=== PATIENT | female | born 1955 | race Caucasian/White ===

== ENCOUNTER 2017-01-13 14:37 | Observation (INO) | payer BC ==
--- NOTE | ~2017-01-13 | HP ---
History And Physical [address] [place]. [address] NAME: NIKKO RUGGIERO : 55 STATUS : ADM Francisca PAT#: [id number] AGE: 61 ADM/REG DATE : 01/13/17 MR#: [id number] REPORT SERV DATE: 01/14/17 DICTATED BY: YORDAN FISHER DATE: 01/14/17 REPORT STATUS : Draft TRANSCRIBED BY: MODL DATE: 01/14/17 DATE OF ADMISSION: 01/13/2017 REASON FOR ADMISSION: Acute pyelonephritis. HISTORY OF PRESENT ILLNESS: Ms. Ruggireo is a 61-year-old female with history of prior left- sided kidney surgery on three occasions, had prior history of kidney stones as well and was sent from primary care provider's office with nausea, vomiting, and failure of treatment of her UTI. The patient states back and leg pain starting at 6:04 p.m., fever to 102 degrees, pain radiated throughout her entire body. The fever broke; however, the pain persisted. She went to [facility] after she began having nausea and vomiting. She was diagnosed with UTI. She was prescribed Omnicef, but has not been able to hold down the medicines primary care provider's office on 01/13, where she was recommended to come to the hospital. She was holding down very little, no food or fluids at all. Her pain is primarily on the left side at this time in the left flank radiating to the groin, also in the right side as well. There was no loose stool. No headache, no neck pain, no chest pain. She has had a 70-pound intentional weight loss, but no bleeding, no dysuria. She has chronic numbness in her left leg that has eluded her prior work up. REVIEW OF SYSTEMS: Negative. PAST MEDICAL HISTORY: As mentioned above. History of meningitis, aseptic on 2 occasions. MEDICATIONS: Omnicef, Synthroid, Percocet, Protonix, Requip, Topamax. ALLERGIES: NO ALLERGIES. FAMILY HISTORY: Negative for kidney stones. SOCIAL HISTORY: The patient has no tobacco, alcohol, or drugs. PHYSICAL EXAMINATION: VITAL SIGNS: Blood pressure 155/81, pulse 73, respirations 18, , 98%. GENERAL: Awake, alert, and oriented x3, in no apparent distress. HEENT: Pupils are equal and reactive to light. Extraocular movements are intact. No cranial deficits. Dry mucous membranes. Normal oropharynx. NECK: Revealed no jugular venous distention, carotid bruits, lymphadenopathy, or goiter. Cardiac: Regular rate and rhythm. No murmurs, gallops, or rubs. LUNGS: Clear to auscultation bilaterally. Good excursion. ABDOMEN: Nondistended, mild diffuse tenderness. Bowel sounds normoactive. BACK: Significant for severe bilateral costovertebral angle tenderness and left side greater than right with significant left groin tenderness. EXTREMITIES: No cyanosis, clubbing, or edema. Good pulses but diminished capillary refill. NEUROLOGIC: Nonfocal x4. EXTREMITIES: Skin is warm, dry. History And Physical [address] [address] NAME: NIKKO RUGGIERO : 55 STATUS : ADM Francisca PAT#: [id number] AGE: 61 ADM/REG DATE : 01/13/17 MR#: [id number] REPORT SERV DATE: 01/14/17 DICTATED BY: YORDAN FISHER DATE: 01/14/17 REPORT STATUS : Draft TRANSCRIBED BY: JOURDAN DATE: 01/14/17 PSYCHIATRIC: She is appropriate. LABORATORY EVALUATION: Sodium 140, potassium 4.0, chloride 109, bicarb 25, BUN 13, creatinine 1.2, glucose 92, white count 4000, H and H of 11 and 34, platelets 236. Records from [facility] are pending. ASSESSMENT AND PLAN: Likely acute pyelonephritis. Differential diagnosis including kidney stones with radiating pain. A kidney stone protocol CT will be done. Give her IV fluids, antibiotics, pain control, and nausea control. Urology consultation if indicated. We anticipate a short stay as she has no indication of sepsis. If she could hold down p.o. medications, that would be perfectly acceptable. JORGE/JOURDAN Yordan Fisher M.D. / [id number] CC: Cal Leyva M.D.
--- NOTE | ~2017-01-13 | DS ---
Discharge Summary [address] [place]. [address] NAME: NIKKO REYNOLDS : 55 STATUS : DIS Francisca PAT#: [id number] AGE: 61 ADM/REG DATE : 01/13/17 MR#: [id number] REPORT SERV DATE: 01/15/17 DICTATED BY: YORDAN FISHER DATE: 01/14/17 REPORT STATUS : Draft TRANSCRIBED BY: MODL DATE: 01/14/17 ADMISSION DATE: 01/13/2017 DISCHARGE DATE: 01/14/2017 PRINCIPAL DIAGNOSES: Acute pyelonephritis with intractable nausea, vomiting, and dehydration. HISTORY OF PRESENT ILLNESS: Please see my dictation on 01/13/2017. HOSPITAL COURSE: Admitted with nausea and vomiting in the setting of UTI, unable to take her antibiotics, found to have significant mid back and flank pain radiating to her left groin consistent with pyelo. She ruled out for kidney stone with a negative CT. She was given IV fluids, antibiotics with some improvement in the symptoms; however, nausea continued until she began Marinol, able to tolerate p.o. and able to release in the afternoon of 01/14/2017 in stable condition. Diet as tolerated. Continuing her Omnicef, Phenergan p.r.n., and Marinol was prescribed 5 mg p.o. b.i.d. Follow up with Dr. Carmella Holliday in one to two weeks. Other medications are unchanged. DICTATED BY: Cal Leyva/JOURDAN Yordan Fisher M.D. / [id number] CC: Cal Leyva MD
[~2017-01-13 14:37] MED LIST: BEN25 PO; EFFEX75 PO; LORTAB 5 PO; PROTONIX20 MG PO; VITAMIN B-122500 MCG SL
[2017-01-13] MEDS ORDERED: REQUIP1 PO (15:37)
[2017-01-13] MEDS ORDERED: PROTONIX PO (15:37)
[2017-01-13] MEDS ORDERED: PCET PO (15:38)
[2017-01-13] MEDS ORDERED: TOPAMAX100 PO (15:38)
[2017-01-13] MEDS ORDERED: LEVOTHYROXIN50 MCG PO (15:38)
[2017-01-13] MEDS ORDERED: OMNICEF300 PO (15:39)
[2017-01-13] MEDS ORDERED: TEARS PLUS OPH (15:40)
[2017-01-13 18:14] LABS: BASOPHILS 0.6 %; BASOPHILS ABSOLUTE 0.03 10/3/uL (0.0-0.16); EOSINOPHILS 2.6 %; EOSINOPHILS ABSOLUTE 0.13 10/3/uL (0.0-0.53); HEMATOCRIT 37.7 % (36.0-48.0); HEMOGLOBIN 12.3 g/dL (12.0-16.0); LYMPHOCYTES ABSOLUTE 2.52 10/3/uL (0.67-4.30); MEAN CORPUS HGB CONC 32.6 g/dL (32.0-36.0); MEAN CORPUSCULAR HEMOGLOB 28.3 pg (26.0-34.0); MEAN CORPUSCULAR VOLUME 86.7 fL (80-100); MONOCYTES 6.3 %; MONOCYTES ABSOLUTE 0.31 10/3/uL (0.21-1.20); NEUTROPHILS 39.5 %; NEUTROPHILS ABSOLUTE 1.95 10/3/uL (2.02-8.40); RBC DISTRIBUTION WIDTH 14.6 % (12.0-16.0); RED CELL COUNT 4.35 10/6/uL (4.0-5.6); WHITE BLOOD CELLS 4.9 10/3/uL (4.5-10.5)
[2017-01-13 18:16] LABS: MANUAL DIFF NO %; PLATELET COUNT 280 10/3/uL (150-400)
[2017-01-13 18:30] LABS: ALBUMIN 3.5 G/DL (3.5-5.0); CALCIUM, SERUM 10.2 MG/DL (8.5-10.4); CHLORIDE, SERUM 109 MMOL/L (96-112); CO2 (CARBON DIOXIDE) 25 MMOL/L (24-34); CREATININE 1.25 MG/DL (0.55-1.02); GFR AFRICAN AMERICAN 54 ML/MIN (>=60); GFR NON AFRICAN AMERICAN 46 ML/MIN (>=60); GLUCOSE, SERUM 92 MG/DL (60-99); PHOSPHORUS, SERUM 3.2 MG/DL (2.5-4.5); SGOT(AST) 16 U/L (5-40); SGPT(ALT) 19 U/L (5-65); SODIUM, SERUM 140 MMOL/L (135-148); TOTAL BILIRUBIN 0.3 MG/DL (0-1.2); TOTAL PROTEIN 8.2 G/DL (6.0-8.5)
[2017-01-13 18:31] LABS: A/G RATIO 0.7 (0.7-1.9); ALKALINE PHOSPHATASE 89 U/L (45-117); BUN (BLOOD UREA NITROGEN) 13 MG/DL (6-23); GLOBULIN 4.7 G/DL (2.5-4.1)
[2017-01-14 04:31] LABS: BASOPHILS 0.5 %; BASOPHILS ABSOLUTE 0.02 10/3/uL (0.0-0.16); EOSINOPHILS 2.5 %; HEMATOCRIT 34.2 % (36.0-48.0); HEMOGLOBIN 11.1 g/dL (12.0-16.0); LYMPHOCYTES 62.6 %; LYMPHOCYTES ABSOLUTE 2.49 10/3/uL (0.67-4.30); MEAN CORPUS HGB CONC 32.5 g/dL (32.0-36.0); MEAN CORPUSCULAR HEMOGLOB 28.1 pg (26.0-34.0); MEAN CORPUSCULAR VOLUME 86.6 fL (80-100); MEAN PLATELET VOLUME 10.2 fL (9.2-13.0); MONOCYTES 8.8 %; MONOCYTES ABSOLUTE 0.35 10/3/uL (0.21-1.20); NEUTROPHILS 25.6 %; NEUTROPHILS ABSOLUTE 1.02 10/3/uL (2.02-8.40); PLATELET COUNT 236 10/3/uL (150-400); RBC DISTRIBUTION WIDTH 14.5 % (12.0-16.0); RED CELL COUNT 3.95 10/6/uL (4.0-5.6)
[2017-01-14 04:32] LABS: MANUAL DIFF NO %
[2017-01-14 04:40] LABS: BUN (BLOOD UREA NITROGEN) 12 MG/DL (6-23); CALCIUM, SERUM 9.5 MG/DL (8.5-10.4); CHLORIDE, SERUM 112 MMOL/L (96-112); CO2 (CARBON DIOXIDE) 22 MMOL/L (24-34); CREATININE 1.07 MG/DL (0.55-1.02); GFR AFRICAN AMERICAN 65 ML/MIN (>=60); GFR NON AFRICAN AMERICAN 56 ML/MIN (>=60); GLUCOSE, SERUM 101 MG/DL (60-99); POTASSIUM, SERUM 3.3 MMOL/L (3.5-5.3); SODIUM, SERUM 144 MMOL/L (135-148)
[2017-01-14 14:23] LABS: ASCORBIC ACID (UR NOT ORDER) NEG (NEG); BILIRUBIN, URINE NEGATIVE (NEG); KETONE, URINE NEGATIVE (NEG); LEUKOCYTE ESTERASE(NOT OR NEG (NEG); WBC (NOT ORDERED) (RFLEX) 1 (0-5)
[2017-01-14] MEDS ORDERED: PR25R (16:40)
[2017-01-14] MEDS ORDERED: MARI5 PO (16:41)
== END 2017-01-14 16:51 | disposition home or self-care (01) ==
LOC: CDU1 14:37
PROVIDERS: Internal Medicine
DX: N10 Acute pyelonephritis (principal); E86.0 Dehydration; R11.2 Nausea with vomiting, unspecified; Z88.0 Allergy status to penicillin; Z88.5 Allergy status to narcotic agent; Z88.1 Allergy status to other antibiotic agents
CPT/HCPCS: 74176; 80048; 80053; 81001; 83735; 84100; 84132; 85025; 87040; 96372; 96374; 96375; 96376; A9270-GY; G0378; J2405; J2550